=== PATIENT | female | born 1980 | race Caucasian/White ===

== ENCOUNTER 2019-05-11 17:05 | Emergency (ER) | payer SELFPAY ==
[~2019-05-11] VITALS: Ht 167.6 cm; Wt 87.2 kg
[~2019-05-11 17:05] MED LIST: IBUP800T48 PO; NORE-87 PO
[2019-05-11 17:10] VITALS: BP 122/73; PULSE 87; RESP 19; Ht 167.6 cm; Wt 87.2 kg
[2019-05-11] MEDS ORDERED: IBUPROFEN 800 MG TAB PO ONE (18:00)
== END 2019-05-11 19:57 | disposition home or self-care (01) ==
LOC: E/R 17:05
DX: N93.9 Abnormal uterine and vaginal bleeding, unspecified (principal)
CPT/HCPCS: 76705; 81001; 84703; 85025